=== PATIENT | female | born 1980 | race African-American/Black ===

== ENCOUNTER → 2019-08-12 | Outpatient (CLI) | payer OTHER ==
[2019-08-12 12:52] LABS: CHOLESTEROL 270.51 mg/dL (0-200); TRIGLYCERIDES 77 mg/dL (<150)
[2019-08-12 13:03] LABS: DIRECT LDL 158 mg/dL (<100)
== END ==
LOC: OD 11:36
PROVIDERS: ATTEND Physician Assistant
DX: E78.5 Hyperlipidemia, unspecified (principal); R06.01 Orthopnea; R00.2 Palpitations; E16.2 Hypoglycemia, unspecified
CPT/HCPCS: 36415; 80061; 83036; 83525; 83735; 83880

== ENCOUNTER → 2019-12-01 | Outpatient (CLI) | payer OTHER | LOC: OD 15:58 | PROVIDERS: ATTEND Internal Medicine Cardiovascular Disease | DX: N91.2 Amenorrhea, unspecified (principal) | CPT/HCPCS: 36415; 84703 ==

== ENCOUNTER → 2019-12-02 | Outpatient (CLI) | payer OTHER ==
--- NOTE | 2019-12-02 15:00 | DRAGON STRESS TEST REPORT ---
Exercise Myocardial Perfusion Imaging Procedure Performed: Rest/Stress - Single Isotope SPECT Imaging with Exercise and Gated SPECT Imaging. Indication: Assessment of atypical chest pains described as a little sharp pain in the left chest. Clinical History: 39 year old female with no known coronary artery disease. Cardiac risk factors include: Hypercholesterolemia, family history of CAD, current symptomatology includes: Atypical chest pains. Report: The patient performed treadmill exercise using a standard Alon Protocol, completing 5 minutes and 15 seconds and completing an estimated workload of 6 METS. The heart rate was 82 BPM at baseline and increased to 162 BPM at peak exercise, which was 88 % of the maximum predicted heart rate. The blood pressure response to exercise was hypertensive, at 203/63. The patient did develop and symptoms other than fatigue during the procedure; specific symptoms include both of sharp pains in the left chest. The resting ECG demonstrated NSR [address]-segment changes T wave changes in inferior leads. Myocardial perfusion imaging was performed at rest (75 minutes following the injection of 16.18 mCi of Cardiolite). At peak exercise, the patient was injected with 47.2 mCi of Cardiolite and exercise continued for 1 minute minutes. Gating post-stress tomographic imaging was performed 60 minutes after stress. Findings: The overall quality of the study is suboptimal, there was significant liver uptake superimposed on the inferoseptal wall unable to improve imaging after significant fluid intake, patient unable to eat a fatty meal to decompress the liver uptake. Left ventricular cavity is noted to be normal in size on the stress and rest studies studies. Additionally, the right ventricle is normal size. SPECT images showed no evidence of any exercise stress-induced reversible ischemia and no fixed perfusion defect. Gated SPECT imaging reveals normal myocardial thickening and wall motion. The left ventricular ejection fraction was calculated to be 65 % OR The left ventricular ejection fraction was normal (>60%). The transient ischemic dilatation ratio was 1.18, not confirmed visually. Impression: Myocardial perfusion imaging is normal. There is no ischemia/infarction in the LV. Overall left ventricular systolic function was normal, and no regional wall motion abnormalities (as noted above). No prior study for comparison. [facility]
== END ==
LOC: RAD 06:44
PROVIDERS: ATTEND Internal Medicine Cardiovascular Disease
DX: R06.02 Shortness of breath (principal); R06.01 Orthopnea
CPT/HCPCS: 93017; 78452; A9500; Q9969